=== PATIENT | male | born 1990 | race Caucasian/White ===

== ENCOUNTER 2016-11-23 18:23 | Emergency (ER) | payer SELFPAY ==
[2016-11-23 18:25] VITALS: BP 134/81; PULSE 96; RESP 20; TEMP 98.8; O2SAT 96
== END 2016-11-23 19:13 | disposition left against medical advice (07) ==
LOC: NED 18:23
DX: K13.79 Other lesions of oral mucosa (principal); Z53.21 Procedure and treatment not carried out due to patient leaving prior to being seen by health care provider
CPT/HCPCS: 99281